=== PATIENT | male | born 1955 | race African-American/Black ===

== ENCOUNTER 2021-05-02 11:18 | Outpatient (CLI) | payer MEDICARE ==
[2021-05-02 21:13] LABS: SARS-CoV-2 PCR by NAA Not Detected (NotDetected)
== END 2021-05-02 11:19 | disposition home or self-care (01) ==
LOC: CSHLAB 11:18
PROVIDERS: ATTEND Internal Medicine Pulmonary Disease
DX: Z01.812 Encounter for preprocedural laboratory examination (principal); Z20.822 Contact with and (suspected) exposure to COVID-19
CPT/HCPCS: U0003; U0005

== ENCOUNTER 2022-04-03 10:58 | Outpatient (CLI) | payer MEDICARE | END 2022-04-03 10:59 | disposition home or self-care (01) | LOC: CSHLAB 10:58 | PROVIDERS: ATTEND Family Medicine | DX: Z20.822 Contact with and (suspected) exposure to COVID-19 (principal) | CPT/HCPCS: 87811 ==

== ENCOUNTER 2022-04-06 11:50 | Outpatient (CLI) | payer MEDICARE | END 2022-04-06 11:51 | disposition home or self-care (01) | LOC: CSHCP 11:50 | PROVIDERS: ATTEND Internal Medicine | DX: J45.909 Unspecified asthma, uncomplicated (principal); J98.4 Other disorders of lung | CPT/HCPCS: 94060; 94726; 94729; 94760 ==